=== PATIENT | male | born 1985 | race Caucasian/White ===

== ENCOUNTER → 2024-06-02 | Outpatient (REF) | payer OTHER | LOC: M LAB REF 08:16 | PROVIDERS: ATTEND Surgery | DX: D17.1 Benign lipomatous neoplasm of skin and subcutaneous tissue of trunk (principal) ==

== ENCOUNTER → 2024-06-30 | Outpatient (REF) | payer OTHER | LOC: M LAB REF 15:29 | PROVIDERS: ATTEND Surgery | DX: D17.1 Benign lipomatous neoplasm of skin and subcutaneous tissue of trunk (principal) ==

== ENCOUNTER → 2024-07-22 | Outpatient (REF) | payer OTHER | LOC: M LAB REF 16:48 | PROVIDERS: ATTEND Surgery | DX: D17.1 Benign lipomatous neoplasm of skin and subcutaneous tissue of trunk (principal) ==